=== PATIENT | male | born 1945 ===

== ENCOUNTER 2020-02-09 14:01 | Emergency (ER) | payer MEDICARE ==
[2020-02-09] MEDS ORDERED: predniSONE 20 MG TAB PO ONE (14:27)
[2020-02-09] MEDS ORDERED: DOXYCYCLINE 100 MG CAP PO ONE (14:27)
[2020-02-09] MEDS ORDERED: ALBUTEROL 2.5 MG/3 ML NEBU IH ONE (14:27)
[2020-02-09] MEDS ORDERED: IPRATROPIUM 0.02% NEBU 2.5 ML IH ONE (14:27)
[2020-02-09] MEDS ORDERED: MAGNESIUM SULFATE 2 GM/50 ML BAG IV ONE (14:36)
--- NOTE | 2020-02-09 14:52 | XRay Report ---
CHEST 1 VIEW INDICATION: Dyspnea. COMPARISON: None. FINDINGS: Support devices: None. Heart: Normal. Lungs/Pleura: Patchy airspace disease is seen in the right upper lobe. Mild bibasilar opacities are s omewhat streaky and may be atelectatic. No significant effusion, no pneumothorax. IMPRESSION: 1. Right upper lobe opacities are concerning for pneumonia. Radiographic follow-up is recommended. Signer Name: Yair Hawkins MD Signed: 02/09/2020 2:47 PM Workstation Name: [id number]
[2020-02-09 15:15] LABS: ABG Base Excess 0.5 mmol/L (-2.0-3.0); ABG HCO3 22.4 mmol/L (20.0-26.0); ABG Methemoglobin 0.5 % (0.0-1.5); ABG Oxygen Saturation 97.2 % (95.0-99.0); ABG PCO2 27.7 mm Hg; ABG PH 7.526 pH Units (7.350-7.450); ABG PO2 83.8 mm Hg (80.0-90.0)
[2020-02-09] MEDS ORDERED: LORazepam 2 MG/ML VIAL IV ONE (15:32)
[2020-02-09 15:34] LABS: Basophils % (Auto) 0.1 % (0.0-1.8); Eosinophils # (Auto) 0.1 K/mm3 (0.0-0.4); Eosinophils % (Auto) 1.7 % (0.0-4.3); Hematocrit 33.2 % (35.5-45.6); Hemoglobin 11.1 gm/dl (11.8-15.2); Lymphocytes # (Auto) 0.7 K/mm3 (1.2-5.4); Lymphocytes % (Auto) 14.5 % (13.4-35.0); Mean Corpuscular HGB Conc 33 % (32-34); Mean Corpuscular Volume 85 fl (84-94); Monocytes # (Auto) 0.6 K/mm3 (0.0-0.8); Monocytes % (Auto) 12.5 % (0.0-7.3); Platelet Count 158 K/mm3 (140-440)
[2020-02-09 16:08] LABS: Alanine Aminotransferase 31 units/L (7-56); Albumin 3.2 g/dL (3.9-5); BUN/Creatinine Ratio 36; Blood Urea Nitrogen 29 mg/dL (9-20); Calcium 9.2 mg/dL (8.4-10.2); Hemolysis Index 6
[2020-02-09 16:21] VITALS: BP 115/68
--- NOTE | 2020-02-09 19:27 | Emergency Department Report ---
ED Shortness of Breath HPI - General Chief Complaint: Dyspnea/Respdistress Stated Complaint: SOB Time Seen by Provider: 02/09/20 14:22 Source: patient Mode of arrival: Ambulatory Limitations: Other - History of Present Illness Initial Comments: Chief complaint: " My COPD is tightening up." HPI: 71-year-old male history of COPD dependent on oxygen nasal cannula at home who presents with shortness of breath. His chest feels tight as if his not get enough air. Gradual onset several days ago. He denies fever. He denies chest pain. He has productive cough. No known sick contacts. MD Complaint: shortness of breath -: days(s) (Several days) Severity: moderate Pain Scale: 0 Consistency: constant Improves With: oxygen Worsens With: exertion Known History Of: COPD Context: other (Breathing treatments at home did not provide any relief) Associated Symptoms: cough - Related Data Previous Rx's Medication Instructions Recorded Last Taken Type Doxycycline Hyclate [Doxycycline 100 mg PO Q12HR 7 Days #14 tab 02/09/20 Unknown Rx Hyclate TAB] Prednisone [predniSONE 10 mg 10 mg PO .TAPER #1 tab.ds.pk 02/09/20 Unknown Rx (6-Day Pack, 21 Tabs)] Allergies Allergy/AdvReac Type Severity Reaction Status Date / Time No Known Allergies Allergy Unverified 02/09/20 14:03 ED Review of Systems ROS: Stated complaint: SOB Other details as noted in HPI Comment: All other systems reviewed and negative Constitutional: denies: chills, fever, malaise Respiratory: cough, shortness of breath, wheezing Cardiovascular: denies: chest pain Gastrointestinal: denies: abdominal pain, nausea, vomiting ED Past Medical Hx - Past Medical History Previous Medical History?: Yes Hx COPD: Yes - Social History Smoking Status: Former Smoker - Medications Home Medications: Home Medications Medication Instructions Recorded Confirmed Last Taken Type Doxycycline Hyclate [Doxycycline 100 mg PO Q12HR 7 Days #14 tab 02/09/20 Unknown Rx Hyclate TAB] Prednisone [predniSONE 10 mg 10 mg PO .TAPER #1 tab.ds.pk 02/09/20 Unknown Rx (6-Day Pack, 21 Tabs)] ED Physical Exam - General Limitations: Other General appearance: alert, in no apparent distress, other (Talkative no acute distress) - Head Head exam: Present: atraumatic, normocephalic - Eye Eye exam: Present: normal appearance - ENT ENT exam: Present: mucous membranes moist - Neck Neck exam: Present: normal inspection - Respiratory Respiratory exam: Present: wheezes (Faint wheezes rales bilaterally), other (Good air movement otherwise). Absent: respiratory distress, rales, rhonchi, accessory muscle use, decreased breath sounds, prolonged expiratory - Cardiovascular Cardiovascular Exam: Present: regular rate, normal rhythm, normal heart sounds. Absent: systolic murmur, diastolic murmur, rubs, gallop - GI/Abdominal GI/Abdominal exam: Present: soft, normal bowel sounds. Absent: distended, tenderness, guarding, rebound - Rectal Rectal exam: Present: deferred - Extremities Exam Extremities exam: Present: normal inspection - Neurological Exam Neurological exam: Present: alert, oriented X3 - Psychiatric Psychiatric exam: Present: normal affect, normal mood - Skin Skin exam: Present: warm, dry, intact, normal color. Absent: rash ED Course Vital Signs 02/09/20 02/09/20 02/09/20 14:05 14:27 14:30 Temperature 98 F Pulse Rate 103 H 72 94 H Pulse Rate [ Anterior Bilateral Throughout] Respiratory 28 H 19 17 Rate Respiratory Rate [Anterior Bilateral Throughout] Blood Pressure Blood Pressure 119/52 [Right] O2 Sat by Pulse 98 98 99 Oximetry 02/09/20 02/09/20 02/09/20 14:45 14:49 14:50 Temperature Pulse Rate 91 H Pulse Rate [ 94 H Anterior Bilateral Throughout] Respiratory 16 24 Rate Respiratory 16 Rate [Anterior Bilateral Throughout] Blood Pressure 119/58 Blood Pressure [Right] O2 Sat by Pulse 98 Oximetry 02/09/20 02/09/20 02/09/20 15:00 15:15 15:30 Temperature Pulse Rate 88 98 H 100 H Pulse Rate [ Anterior Bilateral Throughout] Respiratory 13 21 15 Rate Respiratory Rate [Anterior Bilateral Throughout] Blood Pressure 128/67 100/57 96/60 Blood Pressure [Right] O2 Sat by Pulse 98 99 98 Oximetry 02/09/20 02/09/20 02/09/20 15:46 15:54 16:00 Temperature Pulse Rate 100 H 91 H Pulse Rate [ Anterior Bilateral Throughout] Respiratory 16 20 Rate Respiratory Rate [Anterior Bilateral Throughout] Blood Pressure 96/60 115/68 Blood Pressure 109/58 [Right] O2 Sat by Pulse 98 98 98 Oximetry 02/09/20 02/09/20 02/09/20 16:16 16:21 16:30 Temperature Pulse Rate 94 H Pulse Rate [ Anterior Bilateral Throughout] Respiratory 20 Rate Respiratory Rate [Anterior Bilateral Throughout] Blood Pressure 115/68 115/68 Blood Pressure 115/68 [Right] O2 Sat by Pulse 100 99 97 Oximetry 02/09/20 16:46 Temperature Pulse Rate Pulse Rate [ Anterior Bilateral Throughout] Respiratory Rate Respiratory Rate [Anterior Bilateral Throughout] Blood Pressure 115/68 Blood Pressure [Right] O2 Sat by Pulse 98 Oximetry ED Medical Decision Making - Lab Data Result diagrams: 02/09/20 14:48 02/09/20 14:48 Laboratory Results - last 24 hr 02/09/20 02/09/20 02/09/20 14:48 14:48 14:48 WBC 4.5 RBC 3.90 Hgb 11.1 L Hct 33.2 L MCV 85 MCH 29 MCHC 33 RDW 16.0 H Plt Count 158 Lymph % (Auto) 14.5 Donley % (Auto) 12.5 H Eos % (Auto) 1.7 Baso % (Auto) 0.1 Lymph # (Auto) 0.7 L Donley # (Auto) 0.6 Eos # (Auto) 0.1 Baso # (Auto) 0.0 Seg Neutrophils % 71.2 H Seg Neutrophils # 3.2 ABG pH ABG pCO2 ABG pO2 ABG HCO3 ABG O2 Saturation ABG O2 Content ABG Base Excess ABG Hemoglobin ABG Carboxyhemoglobin ABG Methemoglobin Oxyhemoglobin FiO2 Sodium 136 L Potassium 4.0 Chloride 101.8 Carbon Dioxide 24 Anion Gap 14 BUN 29 H Creatinine 0.8 Estimated GFR > 60 BUN/Creatinine Ratio 36 Glucose 203 H Calcium 9.2 Total Bilirubin 0.50 AST 22 ALT 31 Alkaline Phosphatase 67 Troponin T < 0.010 NT-Pro-B Natriuret Pep 490.0 Total Protein 5.5 L Albumin 3.2 L Albumin/Globulin Ratio 1.4 02/09/20 15:01 WBC RBC Hgb Hct MCV MCH MCHC RDW Plt Count Lymph % (Auto) Donley % (Auto) Eos % (Auto) Baso % (Auto) Lymph # (Auto) Donley # (Auto) Eos # (Auto) Baso # (Auto) Seg Neutrophils % Seg Neutrophils # ABG pH 7.526 H ABG pCO2 27.7 ABG pO2 83.8 ABG HCO3 22.4 ABG O2 Saturation 97.2 ABG O2 Content 15.0 ABG Base Excess 0.5 ABG Hemoglobin 11.1 L ABG Carboxyhemoglobin 1.1 ABG Methemoglobin 0.5 Oxyhemoglobin 95.6 FiO2 28 Sodium Potassium Chloride Carbon Dioxide Anion Gap BUN Creatinine Estimated GFR BUN/Creatinine Ratio Glucose Calcium Total Bilirubin AST ALT Alkaline Phosphatase Troponin T NT-Pro-B Natriuret Pep Total Protein Albumin Albumin/Globulin Ratio - EKG Data -: EKG Interpreted by Me EKG shows normal: sinus rhythm, axis Rate: normal - EKG Data 02/09/20 19:27 EKG obtained 1501 EKG interpreted by me Normal sinus rhythm rate 90 bpm normal axis left bundle branch block no ST elevation nonspecific ST-T wave pattern - Radiology Data Radiology results: report reviewed, image reviewed Chest radiograph 1 view: Right upper lobe opacity concerning for pneumonia - Medical Decision Making Acute COPD exacerbation, community-acquired pneumonia: Patient appears well. He is amatory no difficulty. He is talkative. He received albuterol Atrovent treatment in the emergency department as well as doses of doxycycline and prednisone. Prescribed prednisone taper and doxycycline. Critical care attestation.: If time is entered above; I have spent that time in minutes in the direct care of this critically ill patient, excluding procedure time. ED Disposition Clinical Impression: COPD exacerbation, Community acquired pneumonia Disposition: [id number]-01 TO HOME OR SELFCARE Is pt being admited?: No Does the pt Need Aspirin: No Condition: Stable Instructions: Chronic Obstructive Pulmonary Disease, [id number], Chronic Ob structive Pulmonary Disease (ED), Bacterial Pneumonia (ED) Prescriptions: Doxycycline Hyclate [Doxycycline Hyclate TAB] 100 mg PO Q12HR 7 Days #14 tab Prednisone [predniSONE 10 mg (6-Day Pack, 21 Tabs)] 10 mg PO .TAPER #1 tab.ds.pk Referrals: YARA MONREAL MD [Staff Physician] - 3-5 Days
== END 2020-02-09 17:30 | disposition home or self-care (01) ==
LOC: ED 14:01
DX: J44.1 Chronic obstructive pulmonary disease with (acute) exacerbation (principal); J18.9 Pneumonia, unspecified organism; Z79.899 Other long term (current) drug therapy; Z87.891 Personal history of nicotine dependence
CPT/HCPCS: 36415; 71045; 80053; 82803; 83880; 84484; 85025; 93005; 94640; 96365; 96375; 99284; J2060; J3475; J7512; 94644